=== PATIENT | female | born 1990 | race Two or more races ===

== ENCOUNTER 2021-09-25 16:23 | Emergency (ER) | payer OTHER ==
[~2021-09-25] VITALS: Ht 152.4 cm; Wt 61.2 kg
[2021-09-25] MEDS ORDERED: IBUPROFEN 600 MG TABLET PO ONE (17:15)
[2021-09-25] MEDS ORDERED: IBUP-1955 PO (17:22)
[2021-09-25] MEDS ORDERED: IBUPROFEN 600 MG TABLET ONE (17:26)
--- NOTE | 2021-09-25 17:28 | NUR ---
Patient discharged to home in stable condition. Written and verbal after care instructions given. Patient verbalizes understanding of instructions. Stressed follow up or return to ER for worsening s/s.
[2021-09-25 17:34] VITALS: BP 125/67
== END 2021-09-25 17:30 | disposition home or self-care (01) ==
LOC: ER 16:27
DX: S06.0X0A Concussion without loss of consciousness, initial encounter (principal); S29.9XXA Unspecified injury of thorax, initial encounter; W00.0XXA Fall on same level due to ice and snow, initial encounter; Y92.89 Other specified places as the place of occurrence of the external cause; R03.0 Elevated blood-pressure reading, without diagnosis of hypertension
CPT/HCPCS: A4663